=== PATIENT | female | born 1975 | race Caucasian/White ===

== ENCOUNTER 2021-10-27 20:31 | Emergency (ER) | payer MEDICAID ==
[~2021-10-27] VITALS: Ht 152.4 cm; Wt 67.0 kg
[2021-10-27] MEDS ORDERED: SODIUM CHLORIDE 0.9% 1,000 ML IV ONE (21:00)
[2021-10-27 22:13] LABS: BASOPHILS % 0.4 % (0.0-2.0); EOSINOPHILS % 0.4 % (0.0-5.0); HEMATOCRIT. 39.3 % (36.0-48.0); HEMOGLOBIN. 13.7 g/dL (12.0-16.0); LYMPHOCYTES % 11.2 % (20.0-50.0); MEAN CORPUSCULAR HEMOGLOBIN 31.2 pg (28.0-32.0); MEAN CORPUSCULAR VOLUME 89.8 fL (81.0-99.0); MEAN PLATELET VOLUME 8.2 fl (7.4-10.4); MONOCYTES % 4.6 % (2.0-8.0); NEUTROPHILS % 83.4 % (40.0-76.0); PLATELET 283 x1000/uL (130-400); RED BLOOD CELL COUNT 4.38 mill/uL (4.2-5.4); RED CELL DISTRIBUTION WIDTH 13.2 % (11.6-14.6)
[2021-10-27 22:32] LABS: CHLORIDE 104 mEq/L (98-107); HCG SCREEN NEGATIVE
[2021-10-27 22:36] LABS: ETHANOL BLOOD < 10 mg/dL
[2021-10-27 23:25] VITALS: BP 154/81
== END 2021-10-27 23:57 | disposition home or self-care (01) ==
LOC: ER 20:31
DX: R56.9 Unspecified convulsions (principal); I10 Essential (primary) hypertension; R74.01 Elevation of levels of liver transaminase levels
CPT/HCPCS: 36415; 70450; 71045; 80053; 80320; 82962; 84703; 85025; 93005; 96360; 99285; J7030; G0480